=== PATIENT | male | born 1960 | race American Indian/Alaskan Native ===

== ENCOUNTER 2018-02-14 15:19 | Emergency (ER) | payer OTHER ==
[2018-02-14 15:29] VITALS: BP 126/87; PULSE 97; RESP 18; TEMP 97.4; O2SAT 99
--- NOTE | 2018-02-14 16:03 | C.PDOC ---
History Of Present Illness 57 year old male patient brought in by [facility] presents to the ER with right ankle pain. Patient states he acutely injured his ankle and had ankle surgery. Patient admits to drinking alcohol today and is well known to have alcohol abuse. Time Seen by Provider: 02/14/18 15:29 Chief Complaint (Nursing): Lower Extremity Problem/Injury History Per: Patient History/Exam Limitations: no limitations Current Symptoms Are (Timing): Still Present Past Medical History Reviewed: Historical Data, Nursing Documentation, Vital Signs Vital Signs: Last Vital Signs Temp 97.4 F L 02/14/18 15:26 Pulse 97 H 02/14/18 15:26 Resp 18 02/14/18 15:26 BP 126/87 02/14/18 15:26 Pulse Ox 99 02/14/18 16:03 Family History: States: Unknown Family Hx - Social History Hx Alcohol Use: Yes Hx Substance Use: No Review Of Systems Except As Marked, All Systems Reviewed And Found Negative. Musculoskeletal: Positive for: Foot Pain (right ankle ) Neurological: Positive for: Other (alcohol abuse ) Physical Exam - Physical Exam Appears: Non-toxic, No Acute Distress Skin: Normal Color, Warm, Dry Head: Atraumatic, Normacephalic Eye(s): bilateral: Normal Inspection Ear(s): Bilateral: Normal Oral Mucosa: Moist Neck: Normal ROM, Supple Chest: No Deformity Cardiovascular: Rhythm Regular Respiratory: Normal Breath Sounds Gastrointestinal/Abdominal: Soft, No Tenderness Back: No CVA Tenderness Extremity: Normal ROM (x4), No Pedal Edema, Capillary Refill (<2 sec), Other ( right ankle clear heel surgical scar ) Pulses: Left Dorsalis Pedis: Normal, Right Dorsalis Pedis: Normal Neurological/Psych: Oriented x3, Normal Speech Gait: Steady (no pain) ED Course And Treatment O2 Sat by Pulse Oximetry: 99 (RA) Pulse Ox Interpretation: Normal - Other Rad R ankle X-Ray: Interpreted by Me (ORIF no new fx) Medical Decision Making Medical Decision Making: persistent alcohol abuse chronic R ankle discomfort but normal gait evals for same 01/29 and 02/02 (but refused x-rays then) normal R ankle today (s/p ORIF) no SI/HI ok for d/c. Disposition Doctor Will See Patient In The: Office Counseled Patient/Family Regarding: Studies Performed, Diagnosis - Disposition Referrals: Alcoholics Anonymous [Outside] [facility] [Outside] [facility] [Outside] [facility] [Outside] [facility] [Outside] Disposition: HOME/ ROUTINE Disposition Time: 16:02 Condition: GOOD Additional Instructions: x-ray of your Right ankle shows prior surgery and repair with plates and screws no new fractures you may have chronic pain here apply ice packs as needed Seek help with your chronic alcohol abuse Seek an Alcohol detex program. Instructions: Alcohol Abuse and Alcoholism (DC) Forms: [employer] (Chinese) - Clinical Impression Clinical Impression: Alcohol abuse, Right ankle pain - Scribe Statement The provider has reviewed the documentation as recorded by the Scribe Mcgee Do Provider Attestation: All medical record entries made by the Scribe were at my direction and personally dictated by me. I have reviewed the chart and agree that the record accurately reflects my personal performance of the history, physical exam, medical decision making, and the department course for this patient. I have also personally directed, reviewed, and agree with the discharge instructions and disposition.
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
== END 2018-02-14 16:53 | disposition home or self-care (01) ==
LOC: C.ER 15:19
DX: M25.571 Pain in right ankle and joints of right foot (principal); F10.10 Alcohol abuse, uncomplicated; Y90.9 Presence of alcohol in blood, level not specified